=== PATIENT | female | born 1995 | race Caucasian/White ===

== ENCOUNTER → 2020-09-24 | Outpatient (CLI) | payer BC ==
--- NOTE | 2020-09-25 08:50 | XR ---
EXAMINATION TYPE: XR chest 2V DATE OF EXAM: 09/24/2020 COMPARISON: NONE HISTORY: R06.02 TECHNIQUE: Frontal and lateral views of the chest are obtained. FINDINGS: There is no focal air space opacity, pleural effusion, or pneumothorax seen. The cardiac silhouette size is within normal limits. The osseous structures are intact. IMPRESSION: No acute cardiopulmonary process.
== END | disposition home or self-care (01) ==
LOC: RADXRMAIN 16:27
PROVIDERS: ATTEND Nurse Practitioner Gerontology
DX: R06.02 Shortness of breath (principal)
CPT/HCPCS: 71046